=== PATIENT | female | born 1995 | race Caucasian/White ===

== ENCOUNTER 2019-10-09 | Emergency (ER) | payer OTHER ==
[2019-10-09] MEDS ORDERED: DOXYCYCLINE HYCLATE 100 MG TABLET PO ONE (00:51)
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
[2019-10-09] MEDS ORDERED: ONDANSETRON 4 MG TAB.RAPDIS PO ONE (01:10)
[2019-10-09] MEDS ORDERED: LIDOCAINE 4% CREAM 5 GM TUBE TP ONE (02:04)
[2019-10-09] MEDS ORDERED: NORMAL SALINE 1000 ML 1,000 ML IV ONE ×2 (02:05→03:57)
[2019-10-09] MEDS ORDERED: DIPHENHYDRAMINE HCL 50 MG/ML VIAL IV ONE (02:05)
[2019-10-09] MEDS ORDERED: METOCLOPRAMIDE HCL INJ/PF 10 MG/2 ML SDV IV ONE (02:05)
[2019-10-09] MEDS ORDERED: KETOROLAC TROMETHAMINE INJ/PF 30 MG/1 ML SDV IV ONE ×2 (02:06→03:48)
[2019-10-09] MEDS ORDERED: LIDOCAINE 1% INJ-PF (10 MG/ML) 30 ML SDV INJ ONE (02:08)
--- NOTE | 2019-10-09 02:23 | RADIOLOGY REPORT (SQ) ---
EXAM DESCRIPTION: [facility]: XR TOES 2 OR MORE VIEWS 3 views with attention to the right great toe CLINICAL HISTORY: 24 years Female; toe laceration; ? foreign body; COMPARISON: None FINDINGS: Alignment of the great toe is anatomic. No acute fracture. There are numerous punctate densities projecting over the soft tissues of all toes as well as the foot. These are likely soft tissue calcifications. There are no metallic foreign bodies. No soft tissue air. No lytic bone changes or acute periosteal reaction. IMPRESSION: 1. No fracture 2. No definite foreign body. Numerous scattered densities throughout the foot are likely soft tissue calcifications.
[2019-10-09] MEDS ORDERED: MORPHINE SULFATE 10 MG/ML INJ IV ONE (03:48)
[2019-10-09 04:59] VITALS: BP 127/75
--- NOTE | 2019-10-10 10:50 | EKG REPORT ---
SEVERITY:- BORDERLINE ECG - SINUS TACHYCARDIA BORDERLINE Q WAVES IN INFERIOR LEADS INFERIOR Q WAVES, PROBABLY NORMAL VARIATION : Confirmed by: Yanet Lerma 10-Oct-2019 10:49:48
== END 2019-10-09 05:18 | disposition home or self-care (01) ==
LOC: ER
PROC: 0HQMXZZ Repair Right Foot Skin, External Approach (ICD-10-PCS; principal; 2019-10-09)
DX: S91.111A Laceration without foreign body of right great toe without damage to nail, initial encounter (principal); R51 Headache; W45.8XXA Other foreign body or object entering through skin, initial encounter; W22.8XXA Striking against or struck by other objects, initial encounter; Y93.02 Activity, running; Y92.832 Beach as the place of occurrence of the external cause
CPT/HCPCS: 93005; 96376; 99283; 96361; 96374; 96375; 73660; 93010; 12001; J1200; S0119; J3490 ×2; J1885; J2765; J2270; J7030

== ENCOUNTER → 2019-10-20 | Day surgery (SDC) | payer OTHER ==
--- NOTE | 2019-10-20 14:03 | RADIOLOGY REPORT (SQ) ---
EXAM DESCRIPTION: ARTHRO HIP INJ W/ANESTHESIA; FLUORO/NEEDLE PLACEMENT IMAGES COMPLETED DATE/TIME: 10/20/2019 1:11 pm; 10/20/2019 1:12 pm REASON FOR STUDY: OTHER ARTICULAR CARTILAGE DISORDERS, UNSPECIFIED HIP (M24.159) M24.159 OTHER KADI CULAR CARTILAGE DISORDERS, UNSPECIFIED HIP COMPARISON: None. FLUOROSCOPY TIME: FT: 11 seconds. 1 image submitted to PACS. LIMITATIONS: None. PROCEDURE: The procedure, risks, benefits and alternatives were explained to the patient who then ga ve written consent. The right hip was marked and a time-out was called for correct marking verificati on. The entry site was then marked utilizing fluoroscopic guidance. Next the hip was prepped and dr sonido utilizing sterile technique. Local anesthesia achieved using 1% lidocaine injection. Hypoder nishi needle introduced into the joint space under direct fluoroscopic visualization. Non-ionic contra st instilled to confirm intra-articular position. Dilute gadolinium solution then injected. Needle removed and entry site covered with sterile bandage. No immediate complications noted. TECHNIQUE: Digital images acquired during fluoroscopy and stored on PACS. Patient immediately take n to the MR suite for additional imaging. INJECTION LOCATION: Right hip CONTRAST TYPE AND AMOUNT: 8 mL Dotarem/Saline mixture. IMPRESSION: SUCCESSFUL NEEDLE PLACEMENT AND INJECTION FOR RIGHT HIP MR ARTHROGRAM. COMMENT: Quality ID 145: Final reports for procedures using fluoroscopy that document radiation exp osure indices, or exposure time and number of fluorographic images (if radiation exposure indices are not available) TECHNICAL DOCUMENTATION: JOB ID: [id number] 2010 [employer]- All Rights Reserved Reading location - IP/workstation name: [email or web address] [id number]
--- NOTE | 2019-10-20 14:03 | RADIOLOGY REPORT (SQ) ---
EXAM DESCRIPTION: ARTHRO HIP INJ W/ANESTHESIA; FLUORO/NEEDLE PLACEMENT IMAGES COMPLETED DATE/TIME: 10/20/2019 1:11 pm; 10/20/2019 1:12 pm REASON FOR STUDY: OTHER ARTICULAR CARTILAGE DISORDERS, UNSPECIFIED HIP (M24.159) M24.159 OTHER KADI CULAR CARTILAGE DISORDERS, UNSPECIFIED HIP COMPARISON: None. FLUOROSCOPY TIME: FT: 11 seconds. 1 image submitted to PACS. LIMITATIONS: None. PROCEDURE: The procedure, risks, benefits and alternatives were explained to the patient who then ga ve written consent. The right hip was marked and a time-out was called for correct marking verificati on. The entry site was then marked utilizing fluoroscopic guidance. Next the hip was prepped and dr sonido utilizing sterile technique. Local anesthesia achieved using 1% lidocaine injection. Hypoder nishi needle introduced into the joint space under direct fluoroscopic visualization. Non-ionic contra st instilled to confirm intra-articular position. Dilute gadolinium solution then injected. Needle removed and entry site covered with sterile bandage. No immediate complications noted. TECHNIQUE: Digital images acquired during fluoroscopy and stored on PACS. Patient immediately take n to the MR suite for additional imaging. INJECTION LOCATION: Right hip CONTRAST TYPE AND AMOUNT: 8 mL Dotarem/Saline mixture. IMPRESSION: SUCCESSFUL NEEDLE PLACEMENT AND INJECTION FOR RIGHT HIP MR ARTHROGRAM. COMMENT: Quality ID 145: Final reports for procedures using fluoroscopy that document radiation exp osure indices, or exposure time and number of fluorographic images (if radiation exposure indices are not available) TECHNICAL DOCUMENTATION: JOB ID: [id number] 2010 [employer]- All Rights Reserved Reading location - IP/workstation name: [email or web address] [id number]
--- NOTE | 2019-10-20 14:28 | RADIOLOGY REPORT (SQ) ---
EXAM DESCRIPTION: MRI RT LOWER JOINT WITH IMAGES COMPLETED DATE/TIME: 10/20/2019 1:52 pm REASON FOR STUDY: OTHER ARTICULAR CARTILAGE DISORDERS, UNSPECIFIED HIP (M24.159) M24.159 OTHER KADI CULAR CARTILAGE DISORDERS, UNSPECIFIED HIP COMPARISON: Arthrogram same date TECHNIQUE: Post arthrogram MRI righthip images acquired and stored on PACS. Multiplanar images to in clude fat sensitive sequences as T1, fluid sensitive sequences as T2/STIR and gradient echo sequences . Large FOV fat and fluid sensitive sequences include pelvis and opposite hip. LIMITATIONS: None. FINDINGS: BONE CORTEX AND MARROW: No generalized marrow replacement. No occult fracture. No worriso me bone lesions. RIGHT HIP: FEMORAL HEAD: No occult fracture. No osteophytes or subchondral cysts. Normal sphericity of femoral h ead/neck junction. No acetabular dysplasia. No evidence femoroacetabular impingement. No significant effusion. Mild chondromalacia weight-bearing surface right femoral head. ACETABULUM: Subcortical cysts along the weight-bearing right acetabulum, coronal image 15. LABRUM: Small labral tear along the mid 3rd, best shown on coronal series 8, images 11-13. Irregular ity of the labrum is also seen on sagittal series 9 images 13 through 15. No large paralabral cyst. TROCHANTER: No trochanteric bursal effusion. No edema/fluid at the insertions of the gluteus medius and gluteus minimus. LEFT HIP: Limited evaluation. No worrisome bone lesions. No significant effusion. PELVIS, LOWER LUMBAR SPINE, SACROILIAC JOINTS: PELVIS : No insufficiency/stress fractures. No significant degenerative changes. Sacroiliac joints normal. L SPINE: No significant osteophytes or degenerative changes of the visualized lumbar spine. MUSCLES AND SOFT TISSUES: Adductors and piriformis normal. Abductors and greater trochanteric bursa n ormal without edema or fluid. Iliopsoas bursa without fluid. Hamstring attachments without edema or t ear. PELVIC SOFT TISSUES: No masses or adenopathy. SCIATIC NERVE: Identified, without masses or abnormal signal. OTHER: No other significant finding. 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
== END ==
LOC: RAD 12:26
PROVIDERS: ATTEND Family Medicine
DX: M24.159 Other articular cartilage disorders, unspecified hip (principal)
CPT/HCPCS: 73722; 77002; 27095; A9576